=== PATIENT | female | born 1980 | race Caucasian/White ===

== ENCOUNTER 2016-11-27 21:34 | Emergency (ER) | payer OTHER ==
[~2016-11-27] VITALS: Ht 158.8 cm; Wt 51.3 kg
[~2016-11-27 21:34] MED LIST: ACET-1311 PO; PRENTAB44
[2016-11-27 21:45] VITALS: TEMP 37; Ht 158.8 cm; Wt 51.3 kg
[2016-11-27] MEDS ORDERED: PROPARACAINE HCL 0.5% OP SOLN 15 ML BTL OP STA (21:49)
[2016-11-27] MEDS ORDERED: MULT-610 PO (22:20)
--- NOTE | 2016-11-27 23:05 | EMERGENCY ROOM VISIT NOTE ---
ED Visit Note First contact with patient: 21:47 CHIEF COMPLAINT: Foreign body of the eye HISTORY OF PRESENT ILLNESS: This 36-year-old patient presents to the emergency department complaining of pain and foreign body sensation in the left eye after she accidentally splashed toilet bowl bobbin cleaner in it. Patient was wearing contacts. She removed the contact and discarded it. She rinsed her eye out with water. There has been a constant moderate pain and irritation, redness and tearing in the eye. The vision has not been decreased over all. The patient does wear contacts. The patient rates the pain as 3/10. The patient has not had previous injuries to this eye. Tetanus shot is up to date. REVIEW OF SYSTEMS: A 6 system review of systems was completed with positives and pertinent negatives listed in the HPI. ALLERGIES: Biaxin, Benadryl, reviewed MEDICATIONS: Multi Vitamin PMH: None SOCIAL HISTORY: No drug use PHYSICAL EXAM: Vital Signs: Reviewed Nurse's notes, vital signs stable. Visual acuity reviewed from nursing. GENERAL: This is a pleasant female, in no acute distress, but who is uncomfortable from the eye problem. Well-developed well- nourished. EYES: The pupils are equal round and reactive to light and accommodation. EOMs are full and without tenderness. There is clear discharge from the left eye which is injected. There is nothing visible on the cornea. There is no foreign body visible under the eyelid after lid eversion. no foreign body was seen embedded in the cornea under slit lamp exam. The cornea was clear and no hyphema was seen. Fluorescein uptake was not observed with ultraviolet light significant. EMERGENCY DEPARTMENT COURSE: I examined the patient. Alcaine 2 drops were placed in the patient's left eye. A slit lamp exam was performed as above. The eye was irrigated with normal saline. PH was normal. The patient was discharged home in good condition. DIAGNOSIS: Chemical conjunctivitis DISCHARGE INSTRUCTIONS AND TREATMENT: No contacts for 1 week. Avoid rubbing your eyes. Ibuprofen(Motrin, Advil) may be used for fever or pain. Use 600mg every six hours as needed. Take with food. Avoid using more than 2400mg in a 24 hour period. Do not use 2400mg per day for more than three consecutive days without physician direction. Prolonged inappropriate use can lead to stomach upset or ulcers. (AND/OR) Acetaminophen(Tylenol) may be used for fever or pain. Use 1000mg every six hours as needed. Avoid using more than 3000mg in a 24 hour period. Rest and drink plenty of fluids as tolerated. Continue current medications. Follow up with your primary physician in 2-3 days for a recheck of your current condition. Follow-up with ophthalmology in 2-3 days if symptoms persist. Return to the ED for increasing pain or changes in vision. Current/Historical Medications Scheduled Multiple Vitamins W/ Minerals (Centrum Adults), 1 TAB PO DAILY Allergies Coded Allergies: Diphenhydramine (Verified Allergy, Mild, HIVES, 03/18/14) SHELLFISH (Verified Allergy, Mild, RASH, 03/18/14) Shrimp (Verified Allergy, Mild, RASH, NAUSEA, 03/18/14) Clarithromycin (Verified Adverse Reaction, Mild, GI SYMPTOMS, 03/19/14) per pt sick and lethargic Vital Signs Date Time Temp Pulse Resp B/P (MAP) Pulse Ox O2 Delivery O2 Flow Rate FiO2 11/27/16 21:45 37.0 75 18 111/68 96 Room Air Departure Information Referrals Mindy Modi DO (PCP) Patient Instructions My [facility]
[2016-11-27 23:13] VITALS: BP 130/28; PULSE 68; O2SAT 99
== END 2016-11-27 23:15 | disposition home or self-care (01) ==
LOC: C.EDB 21:35 → C.EDC 23:15
DX: H10.212 Acute toxic conjunctivitis, left eye (principal); T65.91XA Toxic effect of unspecified substance, accidental (unintentional), initial encounter

== ENCOUNTER → 2017-07-04 | Outpatient (CLI) | payer OTHER ==
[~2017-07-04] MED LIST changes: -ACET-1311 PO; +MULT-610 PO; -PRENTAB44
== END | disposition home or self-care (01) ==
LOC: C.PAPS 14:29
PROVIDERS: ATTEND Obstetrics & Gynecology
DX: Z12.4 Encounter for screening for malignant neoplasm of cervix (principal)